=== PATIENT | female | born 1995 | race Caucasian/White ===

== ENCOUNTER 2016-08-05 18:08 | Emergency (ER) | payer BC, OTHER ==
[2016-08-05 18:11] VITALS: BP 103/60; PULSE 88; TEMP 97.9; BMI 26.4
[2016-08-05] MEDS ORDERED: KETOROLAC TROMETHAMINE 60 MG/2 ML VIAL IM ONE (19:10)
--- NOTE | 2016-08-05 19:18 | PDOC ---
History of Present Illness - General Chief Complaint: Ear Problem Stated Complaint: LT SIDE EAR ACHE Time Seen by Provider: 08/05/16 18:45 History Source: Patient Exam Limitations: No Limitations - History of Present Illness Initial Comments: 08/05/16 19:11 CC LEFT EAR ACHE X 2 DAYS, NO FEVER Timing/Duration: 24 hours Severity: moderate Associated Symptoms: denies: denies symptoms, cough, fever/chills, loss of appetite, nausea/vomiting Past History - Past Medical History Allergies/Adverse Reactions: Allergies Allergy/AdvReac Type Severity Reaction Status Date / Time No Known Allergies Allergy Verified 08/05/16 18:09 Home Medications: Ambulatory Orders Naproxen [Naprosyn] 500 mg PO BID #14 tablet 03/30/13 No Home Medications 0 dose .ROUTE UTDICT 03/30/13 Asthma: Yes - Psycho/Social/Smoking Cessation Hx Suicidal Ideation: No Smoking Status: No Smoking History: Never smoked Have you smoked in the past 12 months: No Number of Cigarettes Smoked Daily: 0 Information on smoking cessation initiated: No Hx Alcohol Use: No Drug/Substance Use Hx: No Review of Systems - Review of Systems Constitutional: No: Symptoms Reported, Chills, Fever, Malaise HEENTM: Yes: Ear Pain. No: Nose Pain, Nose Congestion, Throat Pain, Throat Swelling Respiratory: No: Cough Cardiac (ROS): No: Symptoms Reported ABD/GI: No: Symptoms Reported *Physical Exam - Vital Signs Last Vital Signs Temp Pulse Resp BP Pulse Ox 97.9 F 88 18 103/60 100 08/05/16 18:10 08/05/16 18:10 08/05/16 18:10 08/05/16 18:10 08/05/16 18:10 - Physical Exam General Appearance: Yes: Appropriately Dressed. No: Apparent Distress HEENT: positive: Pharynx Normal, TM Bulging, TM Dull, TM Erythema (ON LEFT ). negative: Tonsillar Erythema Neck: positive: Supple. negative: Tender, Rigid, Lymphadenopathy (R), Lymphadenopathy (L) Respiratory/Chest: positive: Lungs Clear. negative: Chest Tender, Normal Breath Sounds Cardiovascular: positive: Regular Rhythm, Regular Rate. negative: Murmur Gastrointestinal/Abdominal: positive: Soft, Organomegaly. negative: Normal Bowel Sounds, Tender, Flat Medical Decision Making - Medical Decision Making 08/05/16 19:18 WILL TREAT WITH MOTRIN FOR LEFT AOM; WAIT AND SEE APPROACH; PT WILL CALL THIS COUPON AND BOND COLLECTION CLERK IN 2 DAYS IF PAIN CONTINUES FOR ABX *DC/Admit/Observation/Transfer Diagnosis at time of Disposition: Otitis media Qualifiers: Otitis media type: unspecified nonsuppurative Laterality: left Qualified Code(s ): H65.92 - Unspecified nonsuppurative otitis media, left ear - Discharge Dispostion Disposition: HOME Condition at time of disposition: Stable Admit: No - Patient Instructions Additional Instructions: PLEASE CALL IN 2 DAYS IF PAIN NO BETTER; START MOTRIN 400MG 3 TIMES DAILY; PLEASE SEE DR GILMAN IN 1 WEEK IF HEARING NO BETTER
[2016-08-05] MEDS ORDERED: KETOROLAC TROMETHAMINE 60 MG/2 ML VIAL ONE (19:33)
== END 2016-08-05 21:09 | disposition home or self-care (01) ==
LOC: JERFT 18:08
DX: H65.92 Unspecified nonsuppurative otitis media, left ear (principal)
CPT/HCPCS: 99281-25